=== PATIENT | female | born 1990 | race Caucasian/White ===

== ENCOUNTER 2016-08-19 19:15 | Emergency (ER) | payer OTHER ==
[2016-08-19 20:21] VITALS: BP 111/71
--- NOTE | 2016-08-19 21:10 | UC ---
Respiratory Complaint HPI - HPI Summary HPI Summary: 25 yo female with the onset of myalgias 4 days ago they have resolved by she has cough/sore throat/anorexia and diarrhea (X3 today) - History of Current Complaint Chief Complaint: UCGeneralIllness Stated Complaint: SORE THROAT/COUGH/CHILLS Time Seen by Provider: 08/19/16 21:02 Hx Obtained From: Patient Hx Last Menstrual Period: 08/11/16 Onset/Duration: Gradual Onset, Lasting Days Timing: Constant Severity Initially: Moderate Severity Currently: Mild Pain Intensity: 2 Pain Scale Used: 0-10 Numeric Alleviating Factors: Nothing Associated Signs And Symptoms: Positive: Fever - alessio, Chills, URI, Nasal Congestion - Allergies/Home Medications Allergies/Adverse Reactions: Allergies Allergy/AdvReac Type Severity Reaction Status Date / Time Metronidazole [From Flagyl] Allergy Intermediate Rash Verified 08/19/16 20:21 PMH/Surg Hx/FS Hx/Imm Hx Previously Healthy: Yes Endocrine History Of: Denies: Diabetes, Thyroid Disease, Hyperthyroidism, Hypothyroidism, Dyslipidemia Cardiovascular History Of: Denies: Cardiac Disorders, Hypertension, Pacemaker/ICD, Myocardial Infarction , Congestive Heart Failure, Atrial Fibrillation, Deep Vein Thrombosis, Bleeding Disorders Respiratory History Of: Denies: COPD, Asthma, Bronchitis, Pneumonia, Pulmonary Embolism GI/ History Of: Denies: Gastroesophageal Reflux, Ulcer, Gastrointestinal Bleed, Gall Bladder Disease, Kidney Stones, Diverticulitis, Renal Disease, Urosepsis Neurological History Of: Denies: TIA, CVA, Dementia, Seizures, Migraine Psychological History Of: Denies: Anxiety, Depression, Bipolar Disorder, Schizophrenia, Post Traumatic Stress Disorder Cancer History Of: Denies: Lung Cancer, Colorectal Cancer, Breast Cancer, Prostate Cancer, Cervical Cancer Other History Of: Negative For: HIV, Hepatitis B, Hepatitis C, Anticoagulant Therapy - Surgical History Surgical History: Yes Surgery Procedure, Year, and Place: right oopherectomy. . tubal ligation - Family History Known Family History: Positive: Hypertension - Social History Alcohol Use: None Substance Use Type: None Smoking Status (MU): Current Every Day Smoker Type: Cigarettes Amount Used/How Often: 1 ppd When Did the Patient Quit Smoking/Using Tobacco: 10/17/14 Household Exposure Type: Cigarettes - Immunization History Most Recent Influenza Vaccination: 01/2015 Review of Systems Constitutional: Fever - alessio, Chills, Fatigue Skin: Negative Eyes: Negative ENT: Sore Throat, Nasal Discharge Respiratory: Cough Cardiovascular: Negative Gastrointestinal: Diarrhea Genitourinary: Negative Motor: Negative Neurovascular: Negative Musculoskeletal: Myalgia - resolve Neurological: Negative Psychological: Negative All Other Systems Reviewed And Are Negative: Yes Physical Exam Triage Information Reviewed: Yes Appearance: Well-Appearing, No Pain Distress, Well-Nourished Vital Signs: Initial Vital Signs Temp 100.0 F 08/19/16 20:17 Pulse 83 08/19/16 20:17 Resp 16 08/19/16 20:17 BP 111/71 08/19/16 20:17 Pulse Ox 100 08/19/16 20:17 Eye Exam: Normal Eyes: Positive: Conjunctiva Clear ENT: Positive: Hearing grossly normal, Pharynx normal, Nasal drainage, TMs normal. Negative: Tonsillar swelling, Tonsillar exudate, Trismus, Muffled/ hoarse voice Dental: Negative: Dental Fracture @, Abscess @ Neck: Positive: Supple, Nontender, No Lymphadenopathy Respiratory: Positive: Lungs clear, Normal breath sounds, No respiratory distress, No accessory muscle use Cardiovascular: Positive: RRR, No Murmur Abdomen Description: Positive: Nontender, No Organomegaly, Soft Musculoskeletal: Positive: Strength Intact, ROM Intact, No Edema Neurological: Positive: Alert Psychological Exam: Normal Psychological: Positive: Decreased Age Appropriate Behavior UC Diagnostic Evaluation - Laboratory O2 Sat by Pulse Oximetry: 100 - normal/not hypoxic Respiratory Course/Dx - Course Course Of Treatment: rapid flu (-) - Differential Dx/Diagnosis Provider Diagnoses: viral syndrome Discharge - Discharge Plan Condition: Stable Disposition: HOME Patient Education Materials: Viral Syndrome (ED) Forms: *Work Release Referrals: Ledy Hassan MD [Primary Care Provider] - Additional Instructions: rest fluids tylenol or advil recheck for new or worsening symptoms recheck in 2-4 days if not better
== END 2016-08-19 21:26 | disposition home or self-care (01) ==
LOC: UCCORT 19:15
DX: B34.9 Viral infection, unspecified (principal); Z88.1 Allergy status to other antibiotic agents; F17.210 Nicotine dependence, cigarettes, uncomplicated
CPT/HCPCS: 87502; 99211; G0463

== ENCOUNTER 2016-12-13 20:07 | Emergency (ER) | payer OTHER ==
[2016-12-13 20:48] VITALS: BP 115/73
[2016-12-13] MEDS ORDERED: predniSONE TAB* 20 MG PO ONE (21:09)
[2016-12-13] MEDS ORDERED: Amoxicillin PO (*) 500 MG CAP PO ONE (21:09)
[2016-12-13] MEDS ORDERED: Albuterol HFA INHALER* 8 gm MDI INH ONE (21:10)
--- NOTE | 2016-12-13 21:17 | UC ---
Respiratory Complaint HPI - HPI Summary HPI Summary: 25 yo female with cough x 3-4 days wheezing has used inhalers before plans on stopping smoking tomorrow - History of Current Complaint Chief Complaint: UCRespiratory Stated Complaint: COUGH Time Seen by Provider: 12/13/16 21:04 Hx Obtained From: Patient Hx Last Menstrual Period: 11/22/16 Onset/Duration: Gradual Onset Timing: Constant Severity Initially: Mild Severity Currently: Moderate Pain Intensity: 3 Pain Scale Used: 0-10 Numeric Character: Cough: Nonproductive Aggravating Factors: Exertion, Deep Breaths - Allergies/Home Medications Allergies/Adverse Reactions: Allergies Allergy/AdvReac Type Severity Reaction Status Date / Time Metronidazole [From Flagyl] Allergy Intermediate Rash Verified 12/13/16 20:40 Home Medications: Home Medications [id number] [Night Time Multi-Symptom] 1 cap PO BEDTIME PRN 12/13/16 [History Confirmed 12/13/16] PMH/Surg Hx/FS Hx/Imm Hx Previously Healthy: Yes Respiratory History: Bronchitis Other History Of: Negative For: HIV, Hepatitis B, Hepatitis C, Anticoagulant Therapy - Surgical History Surgical History: Yes Surgery Procedure, Year, and Place: right oopherectomy. . tubal ligation - Family History Known Family History: Positive: Hypertension, Respiratory Disease - Social History Alcohol Use: None Substance Use Type: None Smoking Status (MU): Current Every Day Smoker Type: Cigarettes Amount Used/How Often: 1/2 PPD When Did the Patient Quit Smoking/Using Tobacco: 10/17/14 Household Exposure Type: Cigarettes - Immunization History Most Recent Influenza Vaccination: 01/2015 Review of Systems Constitutional: Negative Skin: Negative Eyes: Negative ENT: Sore Throat Respiratory: Cough Cardiovascular: Negative Gastrointestinal: Negative Genitourinary: Negative Motor: Negative Neurovascular: Negative Musculoskeletal: Negative Neurological: Negative Psychological: Negative All Other Systems Reviewed And Are Negative: Yes Physical Exam Triage Information Reviewed: Yes Appearance: Well-Appearing, No Pain Distress, Well-Nourished Vital Signs: Initial Vital Signs Temp 98.7 F 12/13/16 20:41 Pulse 106 12/13/16 20:41 Resp 20 12/13/16 20:41 BP 115/73 12/13/16 20:41 Pulse Ox 98 12/13/16 20:41 Vital Signs Reviewed: Yes Eyes: Positive: Conjunctiva Clear ENT: Positive: Normal ENT inspection, Pharynx normal, TMs normal. Negative: Nasal congestion, Nasal drainage, Tonsillar swelling, Tonsillar exudate, Trismus , Muffled/hoarse voice Neck: Positive: Supple, Nontender Respiratory: Positive: No respiratory distress, No accessory muscle use, Wheezing Cardiovascular: Positive: RRR, No Murmur Musculoskeletal: Positive: ROM Intact, No Edema Neurological: Positive: Alert Psychological Exam: Normal Skin Exam: Normal UC Diagnostic Evaluation - Laboratory O2 Sat by Pulse Oximetry: 98 - normal/not hyposic Respiratory Course/Dx - Differential Dx/Diagnosis Provider Diagnoses: acute bronchitis with bronchospasm Discharge - Discharge Plan Condition: Stable Disposition: HOME Prescriptions: Amoxicillin PO (*) [Amoxicillin 875 MG (*)] 875 mg PO BID #14 tab Prednisone [Deltasone] 40 mg PO DAILY #10 tab Patient Education Materials: Acute Bronchitis (ED) Referrals: Ledy Hassan MD [Primary Care Provider] - 4 Days (if not better) Additional Instructions: use inhaler as directed recheck for worsening symptoms stop smoking as planned
== END 2016-12-13 21:31 | disposition home or self-care (01) ==
LOC: UCCORT 20:07
DX: J20.9 Acute bronchitis, unspecified (principal); Z88.1 Allergy status to other antibiotic agents; F17.210 Nicotine dependence, cigarettes, uncomplicated
CPT/HCPCS: 87651; 99213; A9270-GY; G0463; J7512

== ENCOUNTER 2017-01-27 13:51 | Emergency (ER) | payer OTHER ==
[2017-01-27 14:23] VITALS: BP 105/75
--- NOTE | 2017-01-27 15:22 | RAD ---
HISTORY: Right lower extremity trauma COMPARISONS: None VIEWS: 2, Frontal and lateral views of the right foreleg FINDINGS: BONE DENSITY: Normal. BONES: There is no displaced fracture. JOINTS: There is no arthropathy. ALIGNMENT: There is no dislocation. SOFT TISSUES: Unremarkable. OTHER FINDINGS: None. IMPRESSION: NO ACUTE OSSEOUS INJURY. IF SYMPTOMS PERSIST, RECOMMEND REPEAT IMAGING.
[2017-01-27] MEDS ORDERED: Tetan/Diph/Pertus SYR(Tdap)* 0.5 ML SYR(BOOSTRIX) use SYR IM ONE (15:28)
--- NOTE | 2017-01-27 15:44 | UC ---
Lower Extremity/Ankle HPI - HPI Summary HPI Summary: FALL ONTO STAIRS YESTERDAY WITH ABRASION TO RIGHT (ANTERIOR) LEG. TODAY HAD PAIN SWELLING AND BRUISING THAT EXTENDS TO FOOT. NO PAIN IN FOOT. NO PAIN IN ANKLE - History of Current Complaint Chief Complaint: UCLowerExtremity Stated Complaint: RIGHT LEG PAIN Time Seen by Provider: 01/27/17 14:54 Hx Obtained From: Patient Hx Last Menstrual Period: 01/18/17 Onset/Duration: Sudden Onset, Lasting Days, Still Present Severity Initially: Mild Severity Currently: Moderate Aggravating Factor(s): Standing, Ambulation Alleviating Factor(s): Rest, Elevation Able to Bear Weight: No - Risk Factors Gout Risk Factors: Negative DVT Risk Factors: Negative Septic Arthritis Risk Factor: Negative - Allergies/Home Medications Allergies/Adverse Reactions: Allergies Allergy/AdvReac Type Severity Reaction Status Date / Time Metronidazole [From Flagyl] Allergy Intermediate Rash Verified 01/27/17 14:17 PMH/Surg Hx/FS Hx/Imm Hx Previously Healthy: Yes Other History Of: Negative For: HIV, Hepatitis B, Hepatitis C, Anticoagulant Therapy - Surgical History Surgical History: Yes Surgery Procedure, Year, and Place: right oopherectomy. . tubal ligation - Family History Known Family History: Positive: Hypertension, Respiratory Disease - Social History Occupation: Unemployed Lives: With Family Alcohol Use: None Substance Use Type: None Smoking Status (MU): Heavy Every Day Tobacco Smoker Type: Cigarettes Amount Used/How Often: 1 PPD When Did the Patient Quit Smoking/Using Tobacco: 10/17/14 Household Exposure Type: Cigarettes - Immunization History Most Recent Influenza Vaccination: 01/2015 Review of Systems Constitutional: Negative Skin: Other - ABRASION RIGHT LEG Eyes: Negative ENT: Negative Respiratory: Negative Cardiovascular: Negative Gastrointestinal: Negative Genitourinary: Negative Motor: Negative Neurovascular: Negative Musculoskeletal: Arthralgia, Myalgia Neurological: Negative Psychological: Negative Is Patient Immunocompromised?: No All Other Systems Reviewed And Are Negative: Yes Physical Exam Triage Information Reviewed: Yes Appearance: Well-Appearing, Well-Nourished, Pain Distress, Thin Vital Signs: Initial Vital Signs Temp 98.5 F 01/27/17 14:18 Pulse 84 01/27/17 14:18 Resp 16 01/27/17 14:18 BP 105/75 01/27/17 14:18 Pulse Ox 100 01/27/17 14:18 Vital Signs Reviewed: Yes Eye Exam: Normal ENT Exam: Normal Dental Exam: Normal Neck exam: Normal Neck: Positive: Supple, Nontender, No Lymphadenopathy Respiratory Exam: Normal Respiratory: Positive: Chest non-tender, Lungs clear, Normal breath sounds, No respiratory distress, No accessory muscle use Cardiovascular Exam: Normal Cardiovascular: Positive: RRR, No Murmur, Pulses Normal Abdominal Exam: Normal Musculoskeletal: Positive: Strength Intact, ROM Intact, Edema @ - RIGHT ANTERIOR LEG WITH ECCHYMOSES; EXTENSION TO RIGHT FOOT ANKLE Neurological Exam: Normal Psychological Exam: Normal Skin: Positive: Other - ABRASION RIGHT ANTERIOR LEG Lower Extremity Course/Dx - Differential Dx/Diagnosis Differential Diagnosis/HQI/PQRI: Contusion, Fracture (Closed), Sprain, Strain Provider Diagnoses: RIGHT LEG ABRASION; RIGHT LEG CONTUSION/HEMATOMA, MUSCLE STRAIN Discharge - Discharge Plan Condition: Stable Disposition: HOME Patient Education Materials: Crutch Instructions (ED), Contusion in Adults (ED) , Abrasion (ED), Leg Pain (ED) Referrals: Iris Henry MD [Primary Care Provider] -
== END 2017-01-27 15:53 | disposition home or self-care (01) ==
LOC: UCCORT 13:51
DX: S80.11XA Contusion of right lower leg, initial encounter (principal); S86.911A Strain of unspecified muscle(s) and tendon(s) at lower leg level, right leg, initial encounter; F17.210 Nicotine dependence, cigarettes, uncomplicated; W19.XXXA Unspecified fall, initial encounter; Y92.9 Unspecified place or not applicable; Z88.5 Allergy status to narcotic agent
CPT/HCPCS: 90471; 90715; 99213; G0463

== ENCOUNTER 2017-06-29 10:23 | Emergency (ER) | payer OTHER ==
[2017-06-29 13:10] VITALS: BP 117/66
--- NOTE | 2017-06-29 13:21 | UC ---
FLU HPI - HPI Summary HPI Summary: Two days of malaise, achiness, fever, congestion. She has no chronic lung disease. She says she is not . - History of Current Complaint Chief Complaint: UCRespiratory Stated Complaint: FEVER, CONGESTION, LETHARGIC Time Seen by Provider: 06/29/17 13:09 Hx Obtained From: Patient Hx Last Menstrual Period: 05/30/17 Onset/Duration: Gradual Onset, Lasting Days Severity Currently: Moderate Severity Initially: Moderate Pain Intensity: 0 Associated Signs & Symptoms: Positive: Fever, Myalgia, Cough, Sore Throat, Nasal Congestion. Negative: Vomiting, Diarrhea Related Hx: Possible Flu/Infectious Exposure - Allergy/Home Medications Allergies/Adverse Reactions: Allergies Allergy/AdvReac Type Severity Reaction Status Date / Time metronidazole [From Flagyl] Allergy Rash Verified 06/29/17 13:05 PMH/Surg Hx/FS Hx/Imm Hx Previously Healthy: Yes Other History Of: Negative For: HIV, Hepatitis B, Hepatitis C, Anticoagulant Therapy - Surgical History Surgical History: Yes Surgery Procedure, Year, and Place: right oopherectomy. . tubal ligation - Family History Known Family History: Positive: Hypertension, Respiratory Disease - Social History Occupation: Employed Full-time Alcohol Use: None Substance Use Type: None Smoking Status (MU): Heavy Every Day Tobacco Smoker Type: Cigarettes Amount Used/How Often: 1 PPD When Did the Patient Quit Smoking/Using Tobacco: 10/17/14 Household Exposure Type: Cigarettes - Immunization History Most Recent Influenza Vaccination: 01/2015 Review of Systems Constitutional: Fever ENT: Sore Throat, Sinus Congestion Respiratory: Cough All Other Systems Reviewed And Are Negative: Yes Physical Exam Triage Information Reviewed: Yes Appearance: Well-Appearing, No Pain Distress, Well-Nourished Vital Signs: Initial Vital Signs Temp 98.6 F 06/29/17 13:06 Pulse 88 06/29/17 13:06 Resp 16 06/29/17 13:06 BP 117/66 06/29/17 13:06 Pulse Ox 99 06/29/17 13:06 Vital Signs Reviewed: Yes Eyes: Positive: Conjunctiva Clear ENT: Positive: Normal ENT inspection, Pharynx normal, Nasal congestion, TMs normal, Hoarse voice, Uvula midline. Negative: TM bulging, TM dull, TM red, Tonsillar swelling, Tonsillar exudate, Trismus, Muffled voice, Sinus tenderness Neck: Positive: Supple, Nontender, No Lymphadenopathy. Negative: Nuchal Rigidity Respiratory: Positive: Lungs clear, Normal breath sounds, No respiratory distress, No accessory muscle use. Negative: Respiratory distress, Decreased breath sounds, Accessory muscle use, Crackles, Rhonchi, Stridor, Wheezing Cardiovascular: Positive: No Murmur Abdomen Description: Positive: No Organomegaly, Soft. Negative: CVA Tenderness (R), CVA Tenderness (L), Distended, Guarding Musculoskeletal: Positive: ROM Intact Neurological: Positive: Alert, Muscle Tone Normal. Negative: Fatigued Psychological: Positive: Age Appropriate Behavior Skin: Negative: rashes Flu Course/Dx - Course Course Of Treatment: she is well with benign exam and normal vitals. - Differential Dx/Diagnosis Provider Diagnoses: viral illness. Discharge - Discharge Plan Condition: Good Disposition: HOME Patient Education Materials: Upper Respiratory Infection (ED) Referrals: Iris Henry MD [Primary Care Provider] -
== END 2017-06-29 14:12 | disposition home or self-care (01) ==
LOC: UCCORT 10:23
DX: B34.9 Viral infection, unspecified (principal); Z87.891 Personal history of nicotine dependence
CPT/HCPCS: 87502; 99212; G0463

== ENCOUNTER 2017-08-01 09:18 | Emergency (ER) | payer SELFPAY ==
[2017-08-01 10:28] VITALS: BP 113/68
[2017-08-01] MEDS ORDERED: Silver Sulfadiazine 1%* 20 GM TOPICAL ONE (10:41)
--- NOTE | 2017-08-01 10:43 | UC ---
Skin Complaint HPI - HPI Summary HPI Summary: 26 y/o female presents to the urgent care c/o burning her Rt wrist and hand s/p changing fyer hot oil from a [employer] last night around 1930pm. Pt reports she splattered some of the hot oil over her wrist. Pt applied Bacitracin ointment over the burn, but it is not helping. Pain is 7/10 w/ touch w redness and no blisters. FROM of RT wrist and hand. Pt denies numbness or tingling over the RT hand, SOB, chest pain, abdominal pain, N/V/D. Pt states is UTD w/ tetanus vaccine. - History of Current Complaint Chief Complaint: UCBurn Time Seen by Provider: 08/01/17 10:28 Stated Complaint: RIGHT ARM BURN (WC) Hx Obtained From: Patient Hx Last Menstrual Period: 07/01/17 Onset/Duration: Sudden Onset, Lasting Days - 1 day, Worse Since - this morning Skin Exposure Onset/Duration: Hours Ago - 14hrs Timing: Constant Onset Severity: Moderate Current Severity: Moderate Pain Intensity: 7 Pain Scale Used: 0-10 Numeric Location: Hand (Right) - RT hand and RT wirst burn Character: Exposure to Heat Intermittent, Redness, Painful Aggravating Factor(s): Touch Alleviating Factor(s): Cold, OTC Meds Associated Signs & Symptoms: Positive: Rash - superficial burn w/o blisters. Negative: Numbness, Fever, Chills, Cough, Throat Tightening, Drainage Related History: Other: - ellis w/ hot oil - Allergy/Home Medications Allergies/Adverse Reactions: Allergies Allergy/AdvReac Type Severity Reaction Status Date / Time metronidazole [From Flagyl] Allergy Rash Verified 08/01/17 10:21 Home Medications: Home Medications cephALEXin [Keflex] 500 08/01/17 [History] Review of Systems Constitutional: Negative Skin: Other - RT hand and RT wrist burn w/ hot oil, no blisters Eyes: Negative ENT: Negative Respiratory: Negative Cardiovascular: Negative Gastrointestinal: Negative Genitourinary: Negative Motor: Negative Neurovascular: Negative Musculoskeletal: Negative Neurological: Negative Psychological: Negative Is Patient Immunocompromised?: No All Other Systems Reviewed And Are Negative: Yes PMH/Surg Hx/FS Hx/Imm Hx Previously Healthy: Yes - Pt denies PMHX Other History Of: Negative For: HIV, Hepatitis B, Hepatitis C, Anticoagulant Therapy - Surgical History Surgical History: Yes Surgery Procedure, Year, and Place: right oopherectomy. . tubal ligation - Family History Known Family History: Positive: Hypertension, Respiratory Disease - Social History Alcohol Use: None Substance Use Type: None Smoking Status (MU): Light Every Day Tobacco Smoker Type: Cigarettes Amount Used/How Often: 1/2 PPD When Did the Patient Quit Smoking/Using Tobacco: 10/17/14 Household Exposure Type: Cigarettes - Immunization History Most Recent Influenza Vaccination: 01/2015 Physical Exam - Summary Physical Exam Summary: Vital Signs Reviewed: Yes General: well developed, well nourished female sitting in the examining table w/ o any apparent distress Eye Exam: Normal Eyes: Positive: Conjunctiva Clear - PERRLA, EOMI, fundi grossly normal ENT: Positive: Normal ENT inspection, Hearing grossly normal, Pharynx normal, TMs normal Neck: Positive: Supple, Nontender, No Lymphadenopathy Respiratory: Positive: Chest non-tender, Lungs clear, Normal breath sounds, No respiratory distress Cardiovascular: Positive: RRR, No Murmur, Pulses Normal, Brisk Capillary Refill Abdomen Description: Positive: Nontender, No Organomegaly, Soft. Negative: CVA Tenderness (R), CVA Tenderness (L) Bowel Sounds: Positive: Present Musculoskeletal: Positive: Strength Intact, ROM Intact, No Edema Neurological: Positive: Alert, Muscle Tone Normal Psychological Exam: Normal Skin: Positive: Skin: Positive: medial aspect of the RT wrist and RT hand w/ superficial erythema, no blisters, start in shape about 3.0cm x 4.0cm in shape. tender to palpation. mild swelling observed. skin blanches w/ pressure, FROM of the RT wrist and RT hand and all fingers. sensation intact, brisk capillary refill. No involvement of the fingers Triage Information Reviewed: Yes Vital Signs: Initial Vital Signs Temp 98.3 F 08/01/17 10:20 Pulse 94 08/01/17 10:20 Resp 18 08/01/17 10:20 BP 113/68 08/01/17 10:20 Pulse Ox 100 08/01/17 10:20 Course/Dx - Course Course Of Treatment: 26 y/o female presents to the urgent care c/o burning her Rt wrist and hand s/p changing fyer hot oil from a [employer] last night around 1930pm. Pt reports she splattered some of the hot oil over her wrist. Pt applied Bacitracin ointment over the burn, but it is not helping. Pain is 7/10 w / touch w redness and no blisters. FROM of RT wrist and hand. Pt denies numbness or tingling over the RT hand, SOB, chest pain, abdominal pain, N/V/D. Pt states is UTD w/ tetanus vaccine. Hx obtained. Pt w/ a superficial first degree burn of the medial side of RT wrist and hand w/o any blisters about 3.0 x 4.0cm in size on examination. FROM of RT wrist and hand. Pt applied Silvadene topical cream and wound covered w/ nonadhesive sterile gauze. Silvadene cream dispense home and PT instructed in how to applied. Pt advised to f/u w/ PCP if not improvement of symptoms in 3 days. Pt understood and agreed w/ plan of care. - Differential Diagnoses - Skin Complaint Differential Diagnoses: Abscess, Cellulitis, Heat Stroke, Local Allergic Reaction, Urticaria, Other - burn first or second degree - Diagnoses Provider Diagnoses: 1- Superficial First degree burn of RT wrist and RT hand Discharge - Discharge Plan Condition: Stable Disposition: HOME Patient Education Materials: Superficial Burn (ED) Referrals: Iris Henry MD [Primary Care Provider] - 3 Days Additional Instructions: 1- Please apply Silver Silvadene cream around the superficial burn of the RT wrist as directed 2- Continue taking Ibuprofen q6-8hrs PO as directed to decrease swelling and pain 3- If you do not improve or if symptoms worsen please f/u w/ your PCP of return to the [facility] for further treatment
== END 2017-08-01 11:12 | disposition home or self-care (01) ==
LOC: UCCORT 09:18
DX: T23.191A Burn of first degree of multiple sites of right wrist and hand, initial encounter (principal); T31.0 Burns involving less than 10% of body surface; X10.2XXA Contact with fats and cooking oils, initial encounter; Y93.89 Activity, other specified; Y92.9 Unspecified place or not applicable; Y99.0 Civilian activity done for income or pay; Z88.1 Allergy status to other antibiotic agents; Z87.891 Personal history of nicotine dependence
CPT/HCPCS: 16020; 99213; A9270-GY; G0463